=== PATIENT | male | born 1955 | race Two or more races ===

== ENCOUNTER 2019-04-26 15:58 | Emergency (ER) | payer OTHER ==
[~2019-04-26] VITALS: Ht 170.2 cm; Wt 71.7 kg
[2019-04-26] MEDS ORDERED: NKM (16:07)
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
[2019-04-26 16:22] VITALS: BP 146/82
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
[2019-04-26] MEDS ORDERED: IBUPROFEN600 MG ORAL (17:28)
--- NOTE | 2019-04-26 17:32 | NUR ---
ED Nurse Note: PT SITTING PEACEFULLY IN BED IN NAD. AOX4. PRESCRIPTION AND DISCHARGE PAPERWORK EXPLAINED TO PT. PT VERBALIZES UNDERSTANDING AND ALL QUESTIONS ANSWERED. PRESCRIPTION AND DISCHARGE PAPERWORK GIVEN TO PT AND ID WRISTBAND REMOVED. PT WALKED OUT OF ER WITH STEADY GAIT AND ALL BELONGINGS.
[2019-04-26 17:33] VITALS: BP 142/78
--- NOTE | 2019-04-27 11:13 | Diagnostic Imaging Report ---
Indication: Back pain Comparison: None Findings: 3 views of the lumbar spine were obtained. Moderate endplate osteophytes are demonstrated within the mid to lower lumbar spine. There is sclerosis of the lumbar facets. The intervertebral disks appear relatively normal in height and there is no malalignment or fracture. IMPRESSION: Degenerative spondylosis
== END 2019-04-26 17:34 | disposition home or self-care (01) ==
LOC: EMR 16:20
DX: M54.2 Cervicalgia (principal); M54.9 Dorsalgia, unspecified; Z90.89 Acquired absence of other organs; Z87.891 Personal history of nicotine dependence; V43.62XA Car passenger injured in collision with other type car in traffic accident, initial encounter; Y92.410 Unspecified street and highway as the place of occurrence of the external cause; M54.5 Low back pain
CPT/HCPCS: 72020; 99283